=== PATIENT | female | born 1955 | race Caucasian/White ===

== ENCOUNTER → 2021-01-16 09:07 | Outpatient (CLI) | payer MEDICARE, SELFPAY ==
--- NOTE | 2021-01-16 09:17 | CT_ITS ---
PROCEDURE: CT ABDOMEN PELVIS WO/W CON CLINICAL INDICATION: History of lymphoma, right femoral neuropathy COMPARISON: MR 1.5T MR L SPINE W/WO from 01/01/2021 TECHNIQUE: IV Contrast: 75ML Isovue 370 Oral Contrast None Axial images obtained with sagittal and coronal reformats. All CT scans at the facility use one or more dose reduction, viz: automated exposure control, ma/kV adjustment per patient size (including targeted exams where dose is matched to indication, i.e. head), or iterative reconstruction technique. FINDINGS: LOWER THORAX: No acute finding ABDOMEN & PELVIS: The liver, spleen, adrenal glands, gallbladder, and pancreas have an unremarkable appearance. No renal or ureteral calculi.. No suspicious renal mass. There are tiny right renal cyst. The urinary bladder is slightly distended There is a moderate amount of retained colonic feces throughout the colon. Small amount fluid is present in the right perirectal region. No evidence of small-bowel obstruction.. No evidence of appendicitis or diverticulitis. There is a tiny umbilical hernia containing fat. No retroperitoneal or intraperitoneal adenopathy. Mild degenerative changes in the right hip. There has been prior fusion at L3-L4 and L5 with inter pedicular screws in place. Degenerative changes with facet arthropathy noted from L3-S1. There are few small sclerotic foci in the pelvis the largest 1 in the left ilium near the ASIS at approximately 9 mm. These may be due to bone islands. There is some mixed sclerosis and lucency of the right femoral head raising the question of avascular necrosis. There is narrowing of the proximal aspect of the celiac artery with approximately 50 percent stenosis for length 1.3 cm. There is mild poststenotic dilatation. IMPRESSION: 1. No convincing evidence of lymphoma in the abdomen or pelvis. 2. Moderate amount of retained colonic feces. 3. 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 Scattered small sclerotic foci in the pelvis which could be due to bone islands. 6. Nonspecific small amount fluid in the pelvis Dictated by: Chan Soler MD 01/19/2021 08:19 Chan Soler MD in [facility] 01/19/2021 08:19
[2021-01-16 10:09] LABS: Chloride 98 mmol/L (98-107); Potassium 4.8 mmoL/L (3.5-5.1); Sodium 134 mmol/L (136-145)
[2021-01-16 10:12] LABS: Alanine Aminotransferase 23 U/L (12-78); Albumin Level 4.3 g/dl (3.5-5.0); Albumin/Globulin Ratio 1.6 (1.1-1.8); Alkaline Phosphatase 178 U/L (38-126); Anion Gap 14.8 mEq/L (5-15); Aspartate Amino Transferase 23 U/L (14-36); Bilirubin,Total 0.4 mg/dl (0.2-1.3); Blood Urea Nitrogen 11 mg/dl (7-17); Calcium 9.4 mg/dl (8.4-10.2); Carbon Dioxide 26 mmol/L (22.0-30.0); Estimated Glomerular Filt Rate 84 ml/min (>60); GFR (African American) 101 ML/MIN (>60); Globulin 2.7 g/dL (1.3-3.2); Glucose 137 mg/dl (74-100)
[2021-01-16 10:25] LABS: Hemoglobin A1C 7.4 % (4.0-6.0)
== END ==
PROVIDERS: Visit Provider Specialist
DX: E11.9 Type 2 diabetes mellitus without complications (principal); G62.9 Polyneuropathy, unspecified; Z85.79 Personal history of other malignant neoplasms of lymphoid, hematopoietic and related tissues; Z79.84 Long term (current) use of oral hypoglycemic drugs
CPT/HCPCS: 36415; 74178; 80053; 83036; Q9967